=== PATIENT | male | born 1980 | race Caucasian/White ===

== ENCOUNTER 2018-09-03 01:56 | Emergency (ER) | payer OTHER ==
[~2018-09-03] VITALS: Ht 172.7 cm; Wt 113.4 kg
[2018-09-03] MEDS ORDERED: Hair, Skin & N1 EACH PO (02:05)
[2018-09-03] MEDS ORDERED: METCAR500 PO (03:48)
== END 2018-09-03 04:09 | disposition home or self-care (01) ==
LOC: ER 01:56
DX: S39.012A Strain of muscle, fascia and tendon of lower back, initial encounter (principal); Z87.891 Personal history of nicotine dependence; Z79.899 Other long term (current) drug therapy; X58.XXXA Exposure to other specified factors, initial encounter; Y99.0 Civilian activity done for income or pay
CPT/HCPCS: J1170; J2060; J2405

== ENCOUNTER 2018-12-29 22:32 | Emergency (ER) | payer BC ==
[~2018-12-29] VITALS: Ht 172.7 cm; Wt 124.7 kg
[~2018-12-29 22:32] MED LIST: Hair, Skin & N1 EACH PO; METCAR500 PO
[2018-12-29] MEDS ORDERED: Cyclobenzaprine5 MG PO (23:44)
== END 2018-12-29 23:52 | disposition home or self-care (01) ==
LOC: ER 22:32
DX: S29.012A Strain of muscle and tendon of back wall of thorax, initial encounter (principal); X58.XXXA Exposure to other specified factors, initial encounter; Z79.899 Other long term (current) drug therapy; Z87.891 Personal history of nicotine dependence; I10 Essential (primary) hypertension
CPT/HCPCS: 71101; 96372; 99283-25; A9270; J1885

== ENCOUNTER 2021-02-18 10:41 | Inpatient (IN) | payer BC ==
[~2021-02-18] VITALS: Ht 172.7 cm; Wt 138.0 kg
[~2021-02-18 10:41] MED LIST changes: +Cyclobenzaprine5 MG PO; -Hair, Skin & N1 EACH PO
[2021-02-18 11:11] LABS: BASOPHILS ABSOLUTE AUTO 0.07 K/mm3 (0.00-0.23); BASOPHILS PERCENT AUTO 1 % (0-2); EOSINOPHILS ABSOLUTE AUTO 0.08 K/mm3 (0.00-0.68); EOSINOPHILS PERCENT AUTO 1 % (0-6); Hematocrit 49.7 % (37.0-53.0); Hemoglobin 16.6 g/dL (13.5-17.5); IMMATURE GRAN ABSOLUTE AUTO 0.08 K/mm3 (0.00-0.10); IMMATURE GRAN PERCENT AUTO 1 % (0-1); LYMPHOCYTES ABSOLUTE AUTO 1.82 K/mm3 (0.84-5.20); LYMPHOCYTES PERCENT AUTO 15 % (21-46); MONOCYTES ABSOLUTE AUTO 1.01 K/mm3 (0.16-1.47); MONOCYTES PERCENT AUTO 8 % (4-13); Mean Corpuscular HGB 35.5 pg (26.0-34.0); Mean Corpuscular HGB Conc 33.4 g/dL (31.5-36.5); Mean Corpuscular Volume 106 fL (80-100); Mean Platelet Volume 9.4 fL (9.1-12.4); NEUTROPHILS ABSOLUTE AUTO 9.01 K/mm3 (1.96-9.15); NEUTROPHILS PERCENT AUTO 75 % (41-73); Platelet Count 267 K/mm3 (150-400); RDW Coefficient Variation 12.6 % (11.7-14.2); RDW Standard Deviation 49.7 fL (35.1-46.3); Red Blood Cell Count 4.68 M/mm3 (4.30-5.90); White Blood Cell Count 12.07 K/mm3 (4.00-11.30)
[2021-02-18 11:30] LABS: Alanine Aminotransfer (ALT/SGP 65 U/L (12-78); Albumin, Blood 3.4 g/dL (3.4-5.0); Alk Phos 57 U/L (50-136); Anion Gap 7 mmol/L (6-16); Aspartate Aminotrans (AST/SGOT 31 U/L (12-37); Bilirubin, Total 0.6 mg/dL (0.1-1.0); Blood Urea Nitrogen 14 mg/dL (8-24); Bun/Creatinine Ratio 14.9 (12.0-20.0); CO2, Blood 28 mmol/L (21-32); Calcium, Blood 9.2 mg/dL (8.5-10.1); Chloride, Blood 104 mmol/L (98-108); Creatinine, Blood 0.94 mg/dL (0.60-1.20); Globulin, Blood 3.5 g/dL (2.2-4.0); Glomerular Filtration Rate >60 (60-); Glucose, Blood 106 mg/dL (70-99); Potassium, Blood 3.9 mmol/L (3.5-5.5); Sodium, Blood 139 mmol/L (136-145); Total Protein, Blood 6.9 g/dL (6.4-8.2)
[2021-02-18 11:45] LABS: International Normalized Ratio 1.06; Prothrombin Time Results 11.4 Sec (9.7-11.5)
[2021-02-18] MEDS ORDERED: ALBU90OI INH (12:12)
[2021-02-18] MEDS ORDERED: ONDA4ODT MM (12:12)
--- NOTE | 2021-02-18 15:23 | NUR ---
Echocardiogram using 0.60ml of Definity contrast performed.
[2021-02-18 15:31] LABS: SARS-Cov-2 (COVID-19) PCR, MMC NEGATIVE (NEGATIVE)
[2021-02-18 16:11] LABS: U Amphetamine Screen Not Detected; U Barbituate Screen Not Detected; U Benzodiazapine Screen Not Detected; U Buprenorphine Screen Not Detected; U Cannabinoids Screen Not Detected; U Cocaine Screen Not Detected; U Methadone Screen Not Detected; U Methamphetamine Screen Not Detected; U Opiates Screen Not Detected; U Oxycodone Screen Not Detected; U Phencyclidine Screen Not Detected; U Propoxyphene Screen Not Detected
[2021-02-18] MEDS ORDERED: Hair, Skin & N1 EACH PO (19:01)
--- NOTE | 2021-02-19 05:19 | NUR ---
BEE RANCHER SUMMARY PT HAS DENIED ANY CP OR PRESSURE THIS SHIFT. O2 SATS >92% ON RM AIR. TELE HAS SHOWN SR IN 90'S W OCCASIONAL ST IN LOW 100'S. PT HAS DRY NONPRODUCTIVE COUGH AND REPORTS SOB WHEN LYING FLAT. PT CONVERTED TO SR AT 1901 ON 02/18 SO CARDIZEM STOPPED AND ORDER FOR 25MG LOPRESSOR OBTAINED FROM PROVIDER. PT AFEBRILE THIS SHIFT AND HAS HAD GOOD URINE OUTPUT THIS SHIFT. HEPARIN GTT RUNNING UNINTERUPTED THIS SHIFT. PT IS AXO X4 AND USESTHE CALL LIGHT APPROPRIATELY. WILL REPORT TO ONCOMING RN.
[2021-02-19 06:13] LABS: BASOPHILS ABSOLUTE AUTO 0.06 K/mm3 (0.00-0.23); BASOPHILS PERCENT AUTO 1 % (0-2); EOSINOPHILS ABSOLUTE AUTO 0.11 K/mm3 (0.00-0.68); EOSINOPHILS PERCENT AUTO 1 % (0-6); Hematocrit 47.2 % (37.0-53.0); Hemoglobin 15.5 g/dL (13.5-17.5); IMMATURE GRAN ABSOLUTE AUTO 0.04 K/mm3 (0.00-0.10); IMMATURE GRAN PERCENT AUTO 1 % (0-1); LYMPHOCYTES PERCENT AUTO 19 % (21-46); MONOCYTES ABSOLUTE AUTO 0.79 K/mm3 (0.16-1.47); MONOCYTES PERCENT AUTO 9 % (4-13); Mean Corpuscular HGB 35.1 pg (26.0-34.0); Mean Corpuscular HGB Conc 32.8 g/dL (31.5-36.5); Mean Corpuscular Volume 107 fL (80-100); Mean Platelet Volume 9.6 fL (9.1-12.4); NEUTROPHILS ABSOLUTE AUTO 6.07 K/mm3 (1.96-9.15); NEUTROPHILS PERCENT AUTO 69 % (41-73); Platelet Count 202 K/mm3 (150-400); RDW Coefficient Variation 12.7 % (11.7-14.2); RDW Standard Deviation 50.2 fL (35.1-46.3); Red Blood Cell Count 4.41 M/mm3 (4.30-5.90); White Blood Cell Count 8.77 K/mm3 (4.00-11.30)
[2021-02-19 06:32] LABS: Magnesium, Blood 2.3 mg/dL (1.6-2.4)
[2021-02-19 06:33] LABS: Alanine Aminotransfer (ALT/SGP 56 U/L (12-78); Albumin, Blood 3.3 g/dL (3.4-5.0); Albumin/Globulin Ratio 1.1 (0.8-1.8); Alk Phos 49 U/L (50-136); Anion Gap 6 mmol/L (6-16); Aspartate Aminotrans (AST/SGOT 25 U/L (12-37); Bilirubin, Total 0.9 mg/dL (0.1-1.0); Blood Urea Nitrogen 14 mg/dL (8-24); Bun/Creatinine Ratio 15.7 (12.0-20.0); CHOL/HDL RATIO 4.3; CO2, Blood 30 mmol/L (21-32); Calcium, Blood 8.6 mg/dL (8.5-10.1); Chloride, Blood 102 mmol/L (98-108); Cholesterol 160 mg/dL (50-200); Creatinine, Blood 0.89 mg/dL (0.60-1.20); Globulin, Blood 2.9 g/dL (2.2-4.0); Glomerular Filtration Rate >60 (60-); Glucose, Blood 121 mg/dL (70-99); HDL Cholesterol 37 mg/dL (>39); LDL/HDL RATIO 2.7; Low Density Lipoprotein Chol 100 mg/dL (0-110); Potassium, Blood 3.6 mmol/L (3.5-5.5); Sodium, Blood 138 mmol/L (136-145); Total Protein, Blood 6.2 g/dL (6.4-8.2); Triglycerides 113 mg/dL (30-160); Very Low Density Lipoprot Chol 22 mg/dL (6-32)
[2021-02-19 17:03] LABS: SARS-Cov-2 (COVID-19) PCR, MMC POSITIVE (NEGATIVE)
--- NOTE | 2021-02-19 18:26 | NUR ---
THROUGH THE MORNING, THE PT WAS DOING WELL. DENIED ANY PAIN, HEPARIN GTT INFUSING, NO COMPLAINTS. AFTER LUNCHTIME, APROX 1350 IN THE AFTERNOON, PT BEGAN TO COMPLAIN OF SUDDEN ONSET RUQ ABD PAIN AND BLOATING. PT'S ABD FIRM AND DISTENDED, MORE THAN PRIOR ASSESSMENT THIS AM. PT HAVING DIFFICULTY AMBULATING D/T THE PAIN. DR HILL NOTIFIED AND ARRIVED TO ROOM SHORTLY TO EVALUATE PT. VS 156/78, HR 116 ST, SPO2 97% ON RA. GI COCKTAIL GIVEN PER MD ORDERS, SEE EMAR. 1420 PT REPORTS HAVING A LARGE AMOUNT OF DIARRHEA WITH RELEIF OF MOST OF HIS ABD PAIN/PRESSURE. PT STATES THAT HIS HAS COVID, AND THE DEVELOPMENT OF THIS NEW SYMPTOM WARRANTED RETESTING FOR COVID. DR HILL NOTFIFIED, ORDERS RECEIVED. PT PLACED IN ISOLATION PENDING RESULTS. COVID TEST +. PT INFORMED OF RESULTS AND QUESTIONS ANSWERED. DR BERNAL AWARE. PT'S RESPIRATORY STATUS HAS REMAINED STABLE T/O SHIFT, SPO2 97% ON RA.
[2021-02-20 04:21] LABS: BASOPHILS ABSOLUTE AUTO 0.05 K/mm3 (0.00-0.23); BASOPHILS PERCENT AUTO 1 % (0-2); EOSINOPHILS PERCENT AUTO 1 % (0-6); Hematocrit 46.4 % (37.0-53.0); Hemoglobin 15.1 g/dL (13.5-17.5); IMMATURE GRAN ABSOLUTE AUTO 0.04 K/mm3 (0.00-0.10); IMMATURE GRAN PERCENT AUTO 1 % (0-1); LYMPHOCYTES ABSOLUTE AUTO 1.74 K/mm3 (0.84-5.20); LYMPHOCYTES PERCENT AUTO 20 % (21-46); MONOCYTES PERCENT AUTO 10 % (4-13); Mean Corpuscular HGB 35.1 pg (26.0-34.0); Mean Corpuscular HGB Conc 32.5 g/dL (31.5-36.5); Mean Corpuscular Volume 108 fL (80-100); Mean Platelet Volume 9.8 fL (9.1-12.4); NEUTROPHILS ABSOLUTE AUTO 5.86 K/mm3 (1.96-9.15); NEUTROPHILS PERCENT AUTO 67 % (41-73); Platelet Count 204 K/mm3 (150-400); RDW Coefficient Variation 12.7 % (11.7-14.2); RDW Standard Deviation 50.8 fL (35.1-46.3); White Blood Cell Count 8.69 K/mm3 (4.00-11.30)
[2021-02-20 04:39] LABS: Anion Gap 5 mmol/L (6-16); Blood Urea Nitrogen 17 mg/dL (8-24); Bun/Creatinine Ratio 16.3 (12.0-20.0); CO2, Blood 32 mmol/L (21-32); Calcium, Blood 9.1 mg/dL (8.5-10.1); Chloride, Blood 100 mmol/L (98-108); Creatinine, Blood 1.04 mg/dL (0.60-1.20); Glomerular Filtration Rate >60 (60-); Glucose, Blood 105 mg/dL (70-99); Potassium, Blood 3.4 mmol/L (3.5-5.5); Sodium, Blood 137 mmol/L (136-145)
--- NOTE | 2021-02-20 05:53 | NUR ---
SHIFT SUMMARY PATIENT FOUND TO BE A PLESANT MAN WHO IS A&OX4 AND IND IN ROOM. VSS. ON RA. DID START TO DEVELOP A WORSENING COUGH SHIFT WENT ON AND PRN MUCINEX ORDERED WITH SOME RELIEF. STATES HIS DYSPNEA ON EXERTION WORSENING AND HARD TO CATCH BREATH AT TIMES. MD MADE AWARE AND RT PROTOCOL NOW IN PLACE IF THIS WORSENS. SOME CHEST PAIN WITH DEEP BREATHS SEEMINGLY R/T PE. AT TOLERABLE LEVEL AND PATIENT REFUSED ADDITIONAL INTERVENTIONS. NSR/ST ON THE MONITOR. TOLERATING CARDIAC DIET WITH GOOD APPETITE. 2 LOOSE BM NOTED THROUGH SHIFT. VOIDING WELL PER URINAL.HEPARIN THERAPEUTIC INFUSING PER ORDER. NO ACUTE CONCERNS AT THIS TIME. WILL CONTINUE TO MONITOR UNTIL REPORT GIVEN TO DAYSHIFT RN.
[2021-02-20 13:29] LABS: BASOPHILS ABSOLUTE AUTO 0.05 K/mm3 (0.00-0.23); BASOPHILS PERCENT AUTO 1 % (0-2); EOSINOPHILS ABSOLUTE AUTO 0.07 K/mm3 (0.00-0.68); EOSINOPHILS PERCENT AUTO 1 % (0-6); Hematocrit 48.9 % (37.0-53.0); Hemoglobin 16.2 g/dL (13.5-17.5); IMMATURE GRAN ABSOLUTE AUTO 0.04 K/mm3 (0.00-0.10); IMMATURE GRAN PERCENT AUTO 1 % (0-1); LYMPHOCYTES ABSOLUTE AUTO 1.81 K/mm3 (0.84-5.20); LYMPHOCYTES PERCENT AUTO 23 % (21-46); MONOCYTES ABSOLUTE AUTO 0.65 K/mm3 (0.16-1.47); MONOCYTES PERCENT AUTO 8 % (4-13); Mean Corpuscular HGB 35.4 pg (26.0-34.0); Mean Corpuscular HGB Conc 33.1 g/dL (31.5-36.5); Mean Corpuscular Volume 107 fL (80-100); Mean Platelet Volume 9.9 fL (9.1-12.4); NEUTROPHILS ABSOLUTE AUTO 5.44 K/mm3 (1.96-9.15); NEUTROPHILS PERCENT AUTO 67 % (41-73); Platelet Count 211 K/mm3 (150-400); RDW Coefficient Variation 12.6 % (11.7-14.2); RDW Standard Deviation 50.3 fL (35.1-46.3); Red Blood Cell Count 4.57 M/mm3 (4.30-5.90); White Blood Cell Count 8.06 K/mm3 (4.00-11.30)
--- NOTE | 2021-02-20 16:58 | NUR ---
SHIFT SUMMARY PT REMAINS ON RA, A&O, COOPERATIVE c CARE, AND VSS. PT REPORTED SOME TROUBLE SLEEPING R/T INCREASED SOB WHEN LYING DOWN. DISCUSSED THIS c KOBY AND PT REPORTED HE IS AN EVERY DAY DRINKER. CIWA MONITORING ORDERED WELL LORAZEPAM TO HOPEFULLY HELP PT SLEEP. CIWA SCORE WAS 1, R/T MILD ANXIETY AND SWEATING. PT REPORTS HE HAS NOT HAD A DRINK SINCE TUESDAY, THE DAY HE WAS ADMITTED. NICOTINE PATCH ALSO ORDERED AND ADMINISTERED. YOSSI STOCKINGS PLACED ON PT. HEPARIN DRIP CONTINUED @ 33.3 ML/HR. LASIX INCREASED TO TID. 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 SOB c EXERTION NOTED, PT UNDERSTANDS LIMITATIONS. PT IS CURRENTLY SITTING UP IN CHAIR ON PHONE c . CALLS APPROPRIATELY. CALLED AND UPDATED THIS SHIFT BY NURSE.
[2021-02-21 04:32] LABS: BASOPHILS ABSOLUTE AUTO 0.05 K/mm3 (0.00-0.23); BASOPHILS PERCENT AUTO 1 % (0-2); EOSINOPHILS ABSOLUTE AUTO 0.04 K/mm3 (0.00-0.68); EOSINOPHILS PERCENT AUTO 1 % (0-6); Hematocrit 46.9 % (37.0-53.0); Hemoglobin 15.4 g/dL (13.5-17.5); IMMATURE GRAN ABSOLUTE AUTO 0.04 K/mm3 (0.00-0.10); IMMATURE GRAN PERCENT AUTO 1 % (0-1); LYMPHOCYTES PERCENT AUTO 15 % (21-46); MONOCYTES ABSOLUTE AUTO 0.94 K/mm3 (0.16-1.47); MONOCYTES PERCENT AUTO 12 % (4-13); Mean Corpuscular HGB 35.6 pg (26.0-34.0); Mean Corpuscular HGB Conc 32.8 g/dL (31.5-36.5); Mean Corpuscular Volume 108 fL (80-100); Mean Platelet Volume 10.1 fL (9.1-12.4); NEUTROPHILS ABSOLUTE AUTO 5.39 K/mm3 (1.96-9.15); NEUTROPHILS PERCENT AUTO 71 % (41-73); Platelet Count 203 K/mm3 (150-400); RDW Coefficient Variation 12.6 % (11.7-14.2); RDW Standard Deviation 50.5 fL (35.1-46.3); Red Blood Cell Count 4.33 M/mm3 (4.30-5.90); White Blood Cell Count 7.56 K/mm3 (4.00-11.30)
[2021-02-21 04:46] LABS: Anion Gap 7 mmol/L (6-16); Blood Urea Nitrogen 17 mg/dL (8-24); Bun/Creatinine Ratio 16.7 (12.0-20.0); CO2, Blood 29 mmol/L (21-32); Calcium, Blood 9.7 mg/dL (8.5-10.1); Chloride, Blood 102 mmol/L (98-108); Creatinine, Blood 1.02 mg/dL (0.60-1.20); Glomerular Filtration Rate >60 (60-); Glucose, Blood 114 mg/dL (70-99); Magnesium, Blood 2.5 mg/dL (1.6-2.4); Phosphorus, Blood 5.2 mg/dL (2.5-4.9); Sodium, Blood 138 mmol/L (136-145)
[2021-02-21 04:50] LABS: International Normalized Ratio 1.23; Prothrombin Time Results 13.1 Sec (9.7-11.5)
--- NOTE | 2021-02-21 08:11 | NUR ---
AT APPROX 2335 PT'S O2 SATURATION RANGING FROM 84%-93% ON RA. PT PLACED ON 3LO2 VIA NC WHILE SLEEPING. PT DROWSY DURING NIGHT D/T ATIVAN ADMINSTRATION. DENIED SOB DURING THIS TIME.
--- NOTE | 2021-02-21 11:02 | NUR ---
AM NOTE... ASSUMED CARE OF PT AT 0700, PT IS A&Ox4 AND IND IN THE ROOM. PT WAS ADMITTED FOR PE AND FOUND TO HAVE COVID 19. PT'S VS STABLE AT THIS TIME, PT HAS NOT NEEDED ANY O2 EXCEPT LAST NIGHT AFTER GETTING A DOSE OF ATIVAN TO HELP HIM SLEEP. PT STATES HE IS SUPPOSED TO USE A CPAP AT HOME BUT HAS NOT BEEN USING IT. L/S CLEAR AND DIM T/O. BT PRESENT AND NORMOACTIVE, PT STATES THAT HIS LOOSE STOOLS HAVE SLOWED AND HE HAS NOT HAD ANY SO FAR TODAY. PT HAS TRACE EDEMA NOTED TO HIS BLE. PT'S VS STABLE. WILL CONTINUE TO MONITOR.
[2021-02-21 13:35] LABS: BASOPHILS ABSOLUTE AUTO 0.05 K/mm3 (0.00-0.23); BASOPHILS PERCENT AUTO 1 % (0-2); EOSINOPHILS ABSOLUTE AUTO 0.02 K/mm3 (0.00-0.68); EOSINOPHILS PERCENT AUTO 0 % (0-6); Hematocrit 46.3 % (37.0-53.0); Hemoglobin 15.4 g/dL (13.5-17.5); IMMATURE GRAN ABSOLUTE AUTO 0.03 K/mm3 (0.00-0.10); IMMATURE GRAN PERCENT AUTO 1 % (0-1); LYMPHOCYTES ABSOLUTE AUTO 1.14 K/mm3 (0.84-5.20); LYMPHOCYTES PERCENT AUTO 20 % (21-46); MONOCYTES ABSOLUTE AUTO 0.77 K/mm3 (0.16-1.47); MONOCYTES PERCENT AUTO 13 % (4-13); Mean Corpuscular HGB 35.4 pg (26.0-34.0); Mean Corpuscular HGB Conc 33.3 g/dL (31.5-36.5); Mean Corpuscular Volume 106 fL (80-100); Mean Platelet Volume 9.8 fL (9.1-12.4); NEUTROPHILS ABSOLUTE AUTO 3.76 K/mm3 (1.96-9.15); NEUTROPHILS PERCENT AUTO 65 % (41-73); Platelet Count 196 K/mm3 (150-400); RDW Coefficient Variation 12.7 % (11.7-14.2); RDW Standard Deviation 50.6 fL (35.1-46.3); Red Blood Cell Count 4.35 M/mm3 (4.30-5.90); White Blood Cell Count 5.77 K/mm3 (4.00-11.30)
[2021-02-21] MEDS ORDERED: ELIQUIS5 M2 PO (15:51)
[2021-02-21] MEDS ORDERED: C COMPLEX1000 M1 PO (15:52)
[2021-02-21] MEDS ORDERED: ASPI81CH PO (15:52)
[2021-02-21] MEDS ORDERED: FOLI1 PO (15:53)
[2021-02-21] MEDS ORDERED: FURO40 PO (15:55)
[2021-02-21] MEDS ORDERED: Prinivil10 MG PO (15:55)
[2021-02-21] MEDS ORDERED: METO50ER PO (15:56)
[2021-02-21] MEDS ORDERED: POTA10T PO (15:57)
[2021-02-21] MEDS ORDERED: VITAMIN B-1100 M1 PO (15:58)
[2021-02-21] MEDS ORDERED: Vitamin D2000 UNIT PO (15:58)
[2021-02-21] MEDS ORDERED: ZINC220 PO (16:01)
[2021-02-21] MEDS ORDERED: Zithromax250 MG PO (16:04)
--- NOTE | 2021-02-21 17:46 | NUR ---
PT D/C HOME PT D/C HOME WITH ALL BELONGINGS, DISCHARGE EDUCATION AND NEW MEDICATION INFORMATION WAS GIVEN, PT VERBALIZED HIS UNDERSTANDING. MARIOVANGIE BROUGHT THE PT A PORTABLE O2 TANK. PT'S PICKED UP THE PT AT THE DOOR, DENIED ANY QUESTIONS.
== END 2021-02-21 17:06 | disposition home or self-care (01) | DRG 871 ==
LOC: ER 10:41 → SURS 16:35 → PCU 16:35 → SURS 18:43 → PCU 02-19 09:45 → SURS 02-19 09:50 → PCU 02-19 14:33 → SURS 02-19 14:35
PROVIDERS: Emergency Medicine; Family Medicine; Nurse Practitioner Acute Care; Physician Assistant; ADMIT Family Medicine
PROC: XW033E5 Introduction of Remdesivir Anti-infective into Peripheral Vein, Percutaneous Approach, New Technology Group 5 (ICD-10-PCS; principal; 2021-02-20)
DX: A41.89 Other specified sepsis (principal); U07.1 COVID-19; J12.82 Pneumonia due to coronavirus disease 2019; I26.93 Single subsegmental thrombotic pulmonary embolism without acute cor pulmonale; I50.21 Acute systolic (congestive) heart failure; I48.92 Unspecified atrial flutter; R18.8 Other ascites; I42.8 Other cardiomyopathies; Z68.42 Body mass index [BMI] 45.0-49.9, adult; I11.0 Hypertensive heart disease with heart failure; E66.9 Obesity, unspecified; G47.33 Obstructive sleep apnea (adult) (pediatric); E78.2 Mixed hyperlipidemia; F17.290 Nicotine dependence, other tobacco product, uncomplicated; I07.1 Rheumatic tricuspid insufficiency; Z79.899 Other long term (current) drug therapy
CPT/HCPCS: 36415; 71260; 74022; 74177; 80048; 80053; 80061; 83605; 83690; 83735; 83880; 84100; 84145; 84443; 84484; 85025; 85610; 85730; 87040; 87449; 93005; 93010; 96365; 96366; 96368; 96376; 99285-25; A9270; C8929; J0456; J0696; J1644; J1940; J2060; J7050; Q9957; Q9967; U0004